=== PATIENT | male | born 2000 | race Native Hawaiian/Other Pacific Islander ===

== ENCOUNTER 2019-09-01 21:55 | Emergency (ER) | payer SELFPAY ==
[2019-09-02] MEDS ORDERED: ALUM-MAG HYDROXIDE-SIMETHICONE 200-200-20MG/5ML ORAL LIQD 30 ML PO ONE (01:02)
[2019-09-02] MEDS ORDERED: LIDOCAINE-MPF (1%) 10 MG/1 ML VIAL 5 ML INFILTRATI ONE (01:04)
--- NOTE | 2019-09-02 02:19 | Emergency Department Report ---
ED General Adult HPI - General Chief complaint: Anxiety Stated complaint: CHEST PAIN Time Seen by Provider: 09/02/19 00:54 Source: patient Mode of arrival: Ambulatory Limitations: No Limitations - History of Present Illness Initial comments: Mr. Chi is a 19-year-old male who presents for epigastric pain x2 days. States symptoms of 4/10 indigestion. Symptoms are exacerbated by eating and lying down. Symptoms are relieved by sitting up. Patient states not currently taking antiacids. Symptoms intermittent for the past 4 to 5 months. There is no fever, chills, nausea vomiting, back pain, shortness of breath. Patient is tolerating p.o. intake at this time. Onset/Timin -: days(s) Location: abdomen Radiation: non-radiation Severity scale (0 -10): 3 Quality: burning Consistency: intermittent Improves with: none Worsens with: eating Associated Symptoms: denies: chest pain, cough, diaphoresis, fever/chills, headaches, malaise, nausea/vomiting, weakness Treatments Prior to Arrival: none - Related Data Previous Rx's Medication Instructions Recorded Last Taken Type Famotidine [Pepcid] 20 mg PO BID #30 tablet 09/02/19 Unknown Rx Allergies Allergy/AdvReac Type Severity Reaction Status Date / Time No Known Allergies Allergy Unverified 09/01/19 22:21 ED Review of Systems ROS: Stated complaint: CHEST PAIN Other details as noted in HPI Constitutional: denies: chills, fever Eyes: denies: eye pain, eye discharge, vision change ENT: denies: ear pain, throat pain Respiratory: denies: cough, shortness of breath, wheezing Cardiovascular: denies: chest pain, palpitations Endocrine: no symptoms reported Gastrointestinal: abdominal pain. denies: nausea, vomiting, diarrhea, constipation, hematemesis, melena, hematochezia Genitourinary: denies: urgency, dysuria Musculoskeletal: denies: back pain, joint swelling, arthralgia Skin: denies: rash, lesions Neurological: denies: headache, weakness, paresthesias Psychiatric: denies: anxiety, depression Hematological/Lymphatic: denies: easy bleeding, easy bruising ED Past Medical Hx - Social History Smoking Status: Never Smoker Substance Use Type: Marijuana - Medications Home Medications: Home Medications Medication Instructions Recorded Confirmed Last Taken Type Famotidine [Pepcid] 20 mg PO BID #30 tablet 09/02/19 Unknown Rx ED Physical Exam - General Limitations: No Limitations General appearance: alert, in no apparent distress - Head Head exam: Present: atraumatic, normocephalic, normal inspection - Eye Eye exam: Present: normal appearance, EOMI Pupils: Present: normal accommodation - ENT ENT exam: Present: normal orophraynx, mucous membranes moist, TM's normal bilaterally, normal external ear exam - Neck Neck exam: Present: normal inspection, full ROM. Absent: tenderness - Respiratory Respiratory exam: Present: normal lung sounds bilaterally. Absent: respiratory distress, wheezes, stridor - Cardiovascular Cardiovascular Exam: Present: regular rate, normal rhythm, normal heart sounds. Absent: systolic murmur, diastolic murmur, rubs, gallop - GI/Abdominal GI/Abdominal exam: Present: soft, normal bowel sounds. Absent: distended, tenderness, guarding, rebound, rigid, bruit, hernia - Rectal Rectal exam: Present: deferred - Extremities Exam Extremities exam: Present: normal inspection, full ROM, normal capillary refill - Back Exam Back exam: Present: normal inspection, full ROM. Absent: tenderness, CVA tenderness (R), CVA tenderness (L) - Neurological Exam Neurological exam: Present: alert, oriented X3, CN II-XII intact, normal gait - Psychiatric Psychiatric exam: Present: normal affect, normal mood - Skin Skin exam: Present: warm, dry, intact, normal color. Absent: rash ED Course Vital Signs 09/01/19 22:21 Temperature 98.1 F Pulse Rate 74 Respiratory 12 Rate Blood Pressure 158/97 O2 Sat by Pulse 100 Oximetry ED Medical Decision Making - Medical Decision Making symptoms relieved with gi cocktail, pt is tolerating po intake , there is no fever no chills, no n/v, pt denies feeling of axiety, state reflux was his primary complaint. pt will be dc'd to home in stable condition at this time. Critical care attestation.: If time is entered above; I have spent that time in minutes in the direct care of this critically ill patient, excluding procedure time. ED Disposition Clinical Impression: GERD (gastroesophageal reflux disease) Qualifiers: Esophagitis presence: without esophagitis Qualified Code(s): K21.9 - Gastro- esophageal reflux disease without esophagitis Disposition: DC-01 TO HOME OR SELFCARE Is pt being admited?: No Does the pt Need Aspirin: No Condition: Stable Instructions: Gastroesophageal Reflux Disease (ED), Diet for Ulcers and Gastritis (ED) Prescriptions: Famotidine [Pepcid] 20 mg PO BID #30 tablet Referrals: MARQUISE ROWE MD [Staff Physician] - 3-5 Days Forms: Work/School Release Form(ED) Time of Disposition: 02:33
[2019-09-02 03:24] VITALS: BP 108/51
== END 2019-09-02 03:24 | disposition home or self-care (01) ==
LOC: ED 21:55
DX: K21.9 Gastro-esophageal reflux disease without esophagitis (principal)
CPT/HCPCS: 99282